=== PATIENT | male | born 1960 | race African-American/Black ===

== ENCOUNTER 2016-12-06 08:55 | Observation (INO) | payer OTHER ==
[~2016-12-06] VITALS: Ht 162.6 cm; Wt 99.5 kg
[~2016-12-06 08:55] MED LIST: AMLODIPINE BESY10 MG PO; AMLODIPINE BESYL5 MG PO; ANAPROX DS550 M1 PO; Aspirin E.C. PO; BENZONATATE100 MG PO; CEFTIN500 MG PO; FLEXERIL10 MG PO; FLONASE16 G1 BOTH NARES; GOUT; HTN; HYDROCHLOROTH12.5 M3 PO; HYDROCHLOROTHIA25 MG PO; INDOCIN50 MG PO; LIPITOR40 MG PO; LO-DOSE ASPIRIN81 M2 PO; LOPRESSOR50 MG PO; LORTAB 5-325 M1 EACH PO; Lipitor PO; METOPROLOL TART25 MG PO; MICROZIDE12.5 M1 PO; NAPROSYN500 MG PO; NITROSTAT0.4 MG SL; NO HOME MEDS; NORCO 5/3251 TABLET PO; PEN-VEE K,VEET500 MG PO; PERCOCET 5/31 TABLET PO; PRINIVIL10 MG PO; ROBITUSSIN AC,T10 ML PO; SIMVASTATIN10 MG PO; TAMIFLU75 MG PO; TRAMADOL HCL50 MG PO; Tylenol Regular Stre PO; ULTRAM50 MG PO; ZITHROMAX Z-PA250 MG PO; ZITHROMAX250 MG PO; ZOFRAN4 MG PO; ZYLOPRIM300 MG PO; Zestril,Prinivil PO
[2016-12-06 09:40] LABS: EOSINOPHIL (%) 2.1 % (0-5); EOSINOPHIL COUNT 0.2 K/uL (0-0.3); HEMATOCRIT 40.2 % (38.0-50.0); IMMATURE GRANULOCYTE (%) 0.3 % (0.0-0.7); INSTRUMENT ABS NEUTROPHIL CT 7.2 K/uL; LYMPHOCYTE COUNT 2.1 K/uL (1.0-2.8); MCH 29.5 PG (29.0-34.0); MCHC 34.8 G/DL (30.0-36.0); MCV 84.8 FL (86-99); MEAN PLAT.VOLUME 11.2 uM^3 (9.0-12.4); MONOCYTE (%) 5.8 % (3-12); MONOCYTE COUNT 0.6 K/uL (0-0.8); NEUTROPHIL (%) 70.4 % (45-76); NEUTROPHIL COUNT 7.2 K/uL (1.8-6.4); PLATELET COUNT 301 K/uL (156-360); RBC DIS.WIDTH-CV 11.9 % (11.8-14.6); RBC DIS.WIDTH-SD 37.1 % (39-53); RED BLOOD COUNT 4.74 M/uL (4.00-5.50); WHITE BLOOD COUNT 10.2 K/uL (4.1-10.2)
[2016-12-06 09:48] LABS: CHLORIDE 90 mEq/L (99-109); POTASSIUM 3.6 mEq/L (3.7-5.4); SODIUM 133 mEq/L (136-147)
[2016-12-06 09:51] LABS: ANION GAP 14 MEQ/L (2-14)
[2016-12-06 09:53] LABS: GFR ESTIMATE (CALCULATED) 51 mL/min/
[2016-12-06 09:54] LABS: UREA NITROGEN (BUN) 16 mg/dL (9-23)
[2016-12-06 10:27] LABS: GLUCOSE 741 mg/dL (70-99)
[2016-12-06] MEDS ORDERED: LOW DOSE ASPIRI81 M1 PO (11:59)
[2016-12-06] MEDS ORDERED: LOPRESSOR50 MG PO (12:00)
[2016-12-06 12:11] LABS: POINT-OF-CARE METER ID UU13113702; POINT-OF-CARE USER ID STWBNM
[2016-12-06 12:26] LABS: POINT-OF-CARE METER ID UU13113778
[2016-12-06 12:42] LABS: ADD MIUA? NO; BILIRUBIN NEGATIVE; BLOOD NEGATIVE; COLOR STRAW ((YELLOW)); GLUCOSE (STRIP) >=500; KETONES NEGATIVE; LEUKOCYTES NEGATIVE; NITRITE NEGATIVE; PROTEIN (STRIP) NEGATIVE; SPECIFIC GRAVITY 1.026 (1.000-1.030); UCUL ADDED? NO; UROBILINOGEN 0.2 MG/DL (0.2-1.0)
[2016-12-06 12:58] VITALS: BP 136/94
[2016-12-06 13:23] LABS: POINT-OF-CARE METER ID UU14162513
[2016-12-06 13:39] LABS: Estimated Average Glucose 226 mg/dL (70-123); HEMOGLOBIN A1c (GLYCOHEMOGLOB) 9.5 % HGB (Below 5.7)
[2016-12-06 17:11] VITALS: BP 128/78
[2016-12-06 18:00] LABS: POINT-OF-CARE METER ID UU13113831
[2016-12-06 19:42] VITALS: BP 121/74
[2016-12-06 23:28] VITALS: BP 118/82
[2016-12-07 03:54] VITALS: BP 121/80
[2016-12-07 07:15] LABS: ANION GAP 11 MEQ/L (2-14); CHLORIDE 98 MEQ/L (99-109); GFR ESTIMATE (CALCULATED) > 59 mL/min/; HDL CHOLESTEROL 28 MG/DL (Desirable>=40); LDL CHOLESTEROL 35 mg/dL (Desirable<100); NON-HDL CHOLESTEROL 92 mg/dL (Desirable<160); POTASSIUM 3.1 MEQ/L (3.7-5.4); SAMPLE HEMOLYSIS CHECK 0; SAMPLE ICTERIC CHECK 0; SAMPLE LIPEMIA CHECK 0; SODIUM 135 MEQ/L (136-147); TOTAL CHOLESTEROL 120 mg/dL (Desirable<200); TRIGLYCERIDES 283 MG/DL (Normal: <150); UREA NITROGEN (BUN) 15 mg/dL (9-23)
[2016-12-07 07:17] LABS: GLUCOSE 278 mg/dL (70-99)
[2016-12-07 07:43] LABS: POINT-OF-CARE METER ID UU13113700
[2016-12-07 09:44] LABS: POINT-OF-CARE METER ID UU14162513
[2016-12-07] MEDS ORDERED: NOVOLOG 10100 UNITS/ SC (09:44)
[2016-12-07] MEDS ORDERED: LEVEMIR100 UNIT/2 SC (09:44)
[2016-12-07] MEDS ORDERED: NOVOLIN,HU100 UNITS1 SC (11:07)
[2016-12-07] MEDS ORDERED: HUMULIN N100 UNIT/2 SC (11:13)
[2016-12-07 11:29] VITALS: BP 116/75
[2016-12-07] MEDS ORDERED: HUMULIN N100 UNITS/ SC (11:51)
[2016-12-07 12:18] LABS: POINT-OF-CARE METER ID UU13113700
== END 2016-12-07 13:32 | disposition home or self-care (01) ==
LOC: EME 08:55 → 5WEST 10:52 → EDOF 10:52 → 5WEST 12:27
PROVIDERS: Emergency Medicine; Hospitalist; Internal Medicine
DX: E11.65 Type 2 diabetes mellitus with hyperglycemia (principal); N17.9 Acute kidney failure, unspecified; E87.6 Hypokalemia; E87.1 Hypo-osmolality and hyponatremia; R13.10 Dysphagia, unspecified; E66.9 Obesity, unspecified; Z68.37 Body mass index [BMI] 37.0-37.9, adult; I10 Essential (primary) hypertension
CPT/HCPCS: 80048; 80061; 81003; 82948; 83036; 84443; 85025; 99281; 99285; G0378; J1644; J1815; J7030

== ENCOUNTER 2017-02-15 20:36 | Emergency (ER) | payer OTHER ==
[~2017-02-15] VITALS: Ht 167.6 cm; Wt 95.7 kg
[~2017-02-15 20:36] MED LIST changes: +HUMULIN N100 UNIT/2 SC; +HUMULIN N100 UNITS/ SC; +LEVEMIR100 UNIT/2 SC; +LOW DOSE ASPIRI81 M1 PO; +NOVOLIN,HU100 UNITS1 SC; +NOVOLOG 10100 UNITS/ SC
[2017-02-15] MEDS ORDERED: NAPROXEN500 MG PO (22:39)
[2017-02-15 23:12] VITALS: BP 124/87
== END 2017-02-15 23:43 | disposition home or self-care (01) ==
LOC: EME 20:36
PROC: 2W3QX1Z Immobilization of Right Lower Leg using Splint (ICD-10-PCS; principal; 2017-02-15)
DX: M72.2 Plantar fascial fibromatosis (principal); M77.31 Calcaneal spur, right foot; E11.9 Type 2 diabetes mellitus without complications; Z79.4 Long term (current) use of insulin
CPT/HCPCS: 73630; 99281; 99284

== ENCOUNTER 2017-04-12 11:03 | Emergency (ER) | payer OTHER ==
[~2017-04-12] VITALS: Ht 160 cm; Wt 94.0 kg
[~2017-04-12 11:03] MED LIST changes: +NAPROXEN500 MG PO
[2017-04-12] MEDS ORDERED: INDOCIN50 MG PO (12:10)
[2017-04-12 12:28] VITALS: BP 121/82
== END 2017-04-12 12:29 | disposition home or self-care (01) ==
LOC: EME 11:03
DX: M72.2 Plantar fascial fibromatosis (principal)
CPT/HCPCS: 73630; 99281; 99283

== ENCOUNTER 2017-11-25 10:05 | Emergency (ER) | payer OTHER ==
[~2017-11-25] VITALS: Ht 167.6 cm; Wt 96.8 kg
[2017-11-25 10:58] LABS: APPEARANCE CLEAR ((CLEAR)); BILIRUBIN NEGATIVE; BLOOD NEGATIVE; COLOR YELLOW ((YELLOW)); GLUCOSE (STRIP) NEGATIVE; KETONES NEGATIVE; LEUKOCYTES NEGATIVE; NITRITE NEGATIVE; PROTEIN (STRIP) NEGATIVE; SPECIFIC GRAVITY 1.015 (1.000-1.030); UCUL ADDED? NO; UROBILINOGEN 0.2 MG/DL (0.2-1.0)
[2017-11-25 11:17] LABS: ALBUMIN 4.2 g/dL (3.2-4.8); CHLORIDE 109 mEq/L (99-109); POTASSIUM 4.1 mEq/L (3.7-5.4); SODIUM 145 mEq/L (136-147)
[2017-11-25 11:20] LABS: GLUCOSE 91 mg/dL (70-99); TOTAL PROTEIN 7.7 g/dL (6.4-8.3)
[2017-11-25 11:22] LABS: TOTAL BILIRUBIN 0.3 mg/dL (0.0-1.0)
[2017-11-25 11:23] LABS: ALKALINE PHOSPHATASE 57 IU/L (3-129); CREATININE 1.1 mg/dL (0.6-1.3); GFR ESTIMATE (CALCULATED) > 59 mL/min/ (58.99-99999)
[2017-11-25 11:24] LABS: UREA NITROGEN (BUN) 14 mg/dL (9-23)
[2017-11-25 11:25] LABS: AST (GOT) 23 IU/L (2-34)
[2017-11-25 11:26] LABS: ALT (GPT) 22 IU/L (3-49)
[2017-11-25 11:27] LABS: LIPASE 61 U/L (1.0-51.0)
[2017-11-25 11:39] LABS: HEMATOCRIT 41.7 % (38.0-50.0); HEMOGLOBIN 14.7 G/DL (12.5-16.6); MCH 31.4 PG (29.0-34.0); MCHC 35.3 G/DL (30.0-36.0); MCV 89.1 FL (86-99); RBC DIS.WIDTH-CV 14.4 % (11.8-14.6); RBC DIS.WIDTH-SD 46.7 % (39-53); RED BLOOD COUNT 4.68 M/uL (4.00-5.50); WHITE BLOOD COUNT 9.7 K/uL (4.1-10.2)
[2017-11-25] MEDS ORDERED: LEVEMIR FL100 UNIT/1 SC ×2 (11:47→11:48)
[2017-11-25] MEDS ORDERED: NOVOLOG PE100 UNITS/ SC (11:49)
[2017-11-25 13:17] LABS: PLAT.SUFFICIENCY ADEQUATE; PLATELET COUNT 273 K/uL (156-360)
[2017-11-25] MEDS ORDERED: NAPROSYN500 MG PO (13:35)
[2017-11-25] MEDS ORDERED: FLEXERIL10 MG PO (13:35)
[2017-11-25 13:59] VITALS: BP 137/70
== END 2017-11-25 14:06 | disposition home or self-care (01) ==
LOC: EME 10:05
PROVIDERS: Physician Assistant
DX: R10.9 Unspecified abdominal pain (principal); R74.8 Abnormal levels of other serum enzymes; I10 Essential (primary) hypertension; E11.9 Type 2 diabetes mellitus without complications; R91.8 Other nonspecific abnormal finding of lung field; D86.9 Sarcoidosis, unspecified; Z79.82 Long term (current) use of aspirin; Z79.4 Long term (current) use of insulin
CPT/HCPCS: 74176; 80053; 81003; 82948; 83690; 85027; 99281; 99285; J1885; J7030

== ENCOUNTER 2017-12-18 10:34 | Inpatient (IN) | payer OTHER ==
[~2017-12-18] VITALS: Ht 167.6 cm; Wt 91.7 kg
[~2017-12-18 10:34] MED LIST changes: +LEVEMIR FL100 UNIT/1 SC; +NOVOLOG PE100 UNITS/ SC; -SIMVASTATIN10 MG PO; +ZOCOR10 MG PO; +ZYLOPRIM100 MG PO; -ZYLOPRIM300 MG PO
[2017-12-18 11:44] LABS: HEMATOCRIT 40.9 % (38.0-50.0); HEMOGLOBIN 14.4 G/DL (12.5-16.6); MCHC 35.2 G/DL (30.0-36.0); PLATELET COUNT 241 K/uL (156-360); RBC DIS.WIDTH-SD 45.1 % (39-53); RED BLOOD COUNT 4.65 M/uL (4.00-5.50); WHITE BLOOD COUNT 10.9 K/uL (4.1-10.2)
[2017-12-18 11:55] LABS: ALBUMIN 4.4 g/dL (3.2-4.8); CHLORIDE 109 mEq/L (99-109); POTASSIUM 4.2 mEq/L (3.7-5.4); SODIUM 142 mEq/L (136-147)
[2017-12-18 11:58] LABS: GLUCOSE 95 mg/dL (70-99); TOTAL PROTEIN 7.4 g/dL (6.4-8.3)
[2017-12-18 11:59] LABS: TOTAL BILIRUBIN 0.4 mg/dL (0.0-1.0)
[2017-12-18 12:01] LABS: ALKALINE PHOSPHATASE 61 IU/L (3-129); CREATININE 1.1 mg/dL (0.6-1.3); GFR ESTIMATE (CALCULATED) > 59 mL/min/ (58.99-99999)
[2017-12-18 12:02] LABS: UREA NITROGEN (BUN) 14 mg/dL (9-23)
[2017-12-18 12:03] LABS: AST (GOT) 31 IU/L (2-34); DIRECT BILIRUBIN 0.2 mg/dL (0.0-0.3)
[2017-12-18 12:04] LABS: ALT (GPT) 28 IU/L (3-49)
[2017-12-18 12:05] LABS: LIPASE 58 U/L (1.0-51.0)
[2017-12-18 13:03] LABS: TROP-I INTERPRETATION NEGATIVE; TROPONIN-I 0.02 ng/mL (0.0-0.30)
[2017-12-18] MEDS ORDERED: NAPROSYN500 MG PO (13:09)
[2017-12-18] MEDS ORDERED: FLEXERIL10 MG PO (13:10)
[2017-12-18 14:36] LABS: HDL CHOLESTEROL 51 MG/DL (Desirable>=40); LDL CHOLESTEROL 109 mg/dL (Desirable<100); NON-HDL CHOLESTEROL 134 mg/dL (Desirable<160); TOTAL CHOLESTEROL 185 mg/dL (Desirable<200); TRIGLYCERIDES 124 MG/DL (Normal: <150)
[2017-12-18 15:55] VITALS: BP 151/103
[2017-12-18 19:30] VITALS: BP 166/107
[2017-12-19] VITALS (8 sets, daily range): BP systolic 137–193; BP diastolic 85–112
[2017-12-19 07:10] LABS: HEMATOCRIT 40.6 % (38.0-50.0); HEMOGLOBIN 14.1 G/DL (12.5-16.6); MCH 30.4 PG (29.0-34.0); MCHC 34.7 G/DL (30.0-36.0); MCV 87.5 FL (86-99); PLATELET COUNT 256 K/uL (156-360); RBC DIS.WIDTH-CV 14.1 % (11.8-14.6); RBC DIS.WIDTH-SD 44.9 % (39-53); RED BLOOD COUNT 4.64 M/uL (4.00-5.50); WHITE BLOOD COUNT 8.6 K/uL (4.1-10.2)
[2017-12-19 07:39] LABS: CHLORIDE 105 MEQ/L (99-109); CREATININE 1.1 MG/DL (0.6-1.3); GFR ESTIMATE (CALCULATED) > 59 mL/min/ (58.99-99999); GLUCOSE 86 mg/dL (70-99); MAGNESIUM 2.3 mg/dl (1.3-2.7); POTASSIUM 3.9 MEQ/L (3.7-5.4); SODIUM 140 MEQ/L (136-147); UREA NITROGEN (BUN) 13 mg/dL (9-23)
[2017-12-19 14:29] LABS: HEMOGLOBIN A1c (GLYCOHEMOGLOB) 5.3 % (Below 5.7)
[2017-12-20] VITALS: BP 138/92
[2017-12-20 04:39] VITALS: BP 150/90
[2017-12-20 06:40] LABS: BASOPHIL (%) 0.8 % (0-1); BASOPHIL COUNT 0.1 K/uL (0-0.1); EOSINOPHIL COUNT 0.5 K/uL (0-0.3); HEMATOCRIT 42.6 % (38.0-50.0); HEMOGLOBIN 14.5 G/DL (12.5-16.6); IMMATURE GRANULOCYTE (%) 0.2 % (0.0-0.7); LYMPHOCYTE (%) 23.5 % (15-42); LYMPHOCYTE COUNT 2.2 K/uL (1.0-2.8); MCV 88.2 FL (86-99); MONOCYTE COUNT 0.8 K/uL (0-0.8); NEUTROPHIL (%) 62.5 % (45-76); NEUTROPHIL COUNT 5.8 K/uL (1.8-6.4); PLATELET COUNT 273 K/uL (156-360); RBC DIS.WIDTH-CV 13.8 % (11.8-14.6); RBC DIS.WIDTH-SD 44.7 % (39-53); RED BLOOD COUNT 4.83 M/uL (4.00-5.50); WHITE BLOOD COUNT 9.3 K/uL (4.1-10.2)
[2017-12-20 07:05] LABS: CHLORIDE 104 MEQ/L (99-109); CREATININE 1.1 MG/DL (0.6-1.3); GFR ESTIMATE (CALCULATED) > 59 mL/min/ (58.99-99999); GLUCOSE 90 mg/dL (70-99); POTASSIUM 4.1 MEQ/L (3.7-5.4); SODIUM 138 MEQ/L (136-147); UREA NITROGEN (BUN) 13 mg/dL (9-23)
[2017-12-20 07:41] VITALS: BP 152/93
[2017-12-20] MEDS ORDERED: LISINOPRIL5 MG PO (10:54)
[2017-12-20] MEDS ORDERED: ATORVASTATIN CA40 MG PO (10:54)
== END 2017-12-20 11:42 | disposition home or self-care (01) | DRG 66 ==
LOC: EME 10:34 → EDOF 13:30 → 5SOUTH 13:30 → ENRESERV 13:31 → 5SOUTH 14:59
PROVIDERS: Emergency Medicine; Hospitalist; Internal Medicine
DX: I63.9 Cerebral infarction, unspecified (principal); I16.0 Hypertensive urgency; E11.9 Type 2 diabetes mellitus without complications; D86.9 Sarcoidosis, unspecified; E78.5 Hyperlipidemia, unspecified; G43.909 Migraine, unspecified, not intractable, without status migrainosus; G89.29 Other chronic pain; M54.5 Low back pain; I10 Essential (primary) hypertension; M10.9 Gout, unspecified; I71.2 Thoracic aortic aneurysm, without rupture; Z79.4 Long term (current) use of insulin; Z79.82 Long term (current) use of aspirin
CPT/HCPCS: 70450; 70496; 70498; 70551; 80048; 80061; 80076; 82948; 83036; 83690; 83735; 84484; 85025; 85027; 93306; 99281; 99285; J0780; J1200; J1650; J1815; J1885; J7030

== ENCOUNTER 2018-04-05 11:59 | Emergency (ER) | payer OTHER ==
[~2018-04-05] VITALS: Ht 160 cm; Wt 93.4 kg
[~2018-04-05 11:59] MED LIST changes: +ATORVASTATIN CA40 MG PO; +LISINOPRIL5 MG PO
[2018-04-05] MEDS ORDERED: MEDROL DOSEPAK4 MG PO (13:38)
[2018-04-05] MEDS ORDERED: VALIUM5 MG PO (13:38)
[2018-04-05] MEDS ORDERED: LIDODERM 5% P1 PATCH TD (13:38)
[2018-04-05 13:52] VITALS: BP 108/84
== END 2018-04-05 13:52 | disposition home or self-care (01) ==
LOC: EME 11:59
DX: M54.5 Low back pain (principal); M41.9 Scoliosis, unspecified; I10 Essential (primary) hypertension; E11.9 Type 2 diabetes mellitus without complications; Z79.4 Long term (current) use of insulin; Z79.82 Long term (current) use of aspirin
CPT/HCPCS: 99281; 99284